=== PATIENT | female | born 1955 | race Caucasian/White ===

== ENCOUNTER 2024-05-04 10:54 | Day surgery (SDC) | payer OTHER, BC ==
[2024-04-30 09:59] VITALS: BMI 25.7
[2024-05-04 11:25] VITALS: TEMP 97.3
[2024-05-04 14:21] VITALS: RESP 17
[2024-05-04 14:24] VITALS: PULSE 60
[2024-05-04 14:27] VITALS: BP 110/60
== END 2024-05-04 13:35 | disposition home or self-care (01) ==
LOC: FASU-ENDO 10:54
PROVIDERS: ATTEND Internal Medicine Gastroenterology
PROC: 0DBN8ZX Excision of Sigmoid Colon, Via Natural or Artificial Opening Endoscopic, Diagnostic (ICD-10-PCS; principal; 2024-05-04 12:18)
DX: Z12.11 Encounter for screening for malignant neoplasm of colon (principal); K63.5 Polyp of colon; K64.0 First degree hemorrhoids
CPT/HCPCS: 88305-TC